=== PATIENT | female | born 1955 | race Caucasian/White ===

== ENCOUNTER 2021-02-02 11:12 | Emergency (ER) | payer OTHER ==
[~2021-02-02] VITALS: Ht 160 cm; Wt 65.8 kg
[2021-02-02] MEDS ORDERED: SODIUM CHLORIDE 0.9% 1,000 ML IV ONE ×2 (11:30→14:00)
[2021-02-02 12:09] LABS: INR 0.94 (0.9-1.15); Partial Thromboplastin Time 25.5 sec (23.0-31.2)
[2021-02-02 12:21] LABS: Lactic Acid w/Reflex 2.5 mmol/L (0.4-2.0)
[2021-02-02 12:30] LABS: Albumin 4.1 g/dL (3.4-5.0); Anion Gap 10 (5-15); Blood Urea Nitrogen 10 mg/dL (7-18); Calcium 9.4 mg/dL (8.5-10.1); Carbon Dioxide 24 mmol/L (21-32); Chloride 102 mmol/L (98-107); Glucose 160 mg/dL (74-106); Lipase 202 U/L (73-393); Sodium 136 mmol/L (136-145)
[2021-02-02 12:34] LABS: Basophils # (auto) 0.1 10 ^3/uL (0-0.2); Eosinophils # (auto) 0.1 10 ^3/uL (0-0.8); Hemoglobin 17.2 g/dL (12.2-16.2); Mean Corpuscular Hemoglobin 34.2 pg (28.0-32.0); Mean Corpuscular Hgb Conc. 34.1 g/dL (32.0-36.0); Monocytes # (auto) 0.9 10 ^3/uL (0-1.3); Neutrophils # (auto) 7.1 10 ^3/uL (1.6-8.6)
[2021-02-02 12:35] LABS: Basophils % (auto) 1.1 % (0.0-2.0); Eosinophils % (auto) 0.9 % (0.0-7.0); Hematocrit 50.3 % (36.0-46.0); Lymphocytes % (auto) 19.9 % (10.0-50.0); Mean Corpuscular Volume 100.3 fL (80.0-100.0); Monocytes % (auto) 8.6 % (0.0-12.0); Neutrophils % (auto) 69.5 % (37.0-80.0); Nucleated Red Blood Cells % 0.1 %; Platelet Count (auto) 403 10^3/uL (140-450); Red Blood Cells 5.01 10^6/uL (4.0-5.20); White Blood Cell 10.2 10^3/uL (4.4-10.8)
[2021-02-02 12:37] LABS: Alanine Aminotransferase 25 U/L (13-56); Alkaline Phosphatase 88 U/L (45-117); Aspartate Aminotransferase 22 U/L (15-37); BUN/Creatinine Ratio 9.3; Bilirubin, Total 0.5 mg/dL (0.2-1.0); GFR African American 66 mL/min; GFR Non-African American 55 mL/min; Total Protein 8.3 g/dL (6.4-8.2)
[2021-02-02 13:31] LABS: Urine WBC None Seen /hpf (0 - 5)
[2021-02-02 13:45] LABS: Urine Bacteria NONE SEEN /hpf (None Seen); Urine Blood Negative /uL (Negative); Urine Mucus FEW (None Seen); Urine Specific Gravity 1.008 (1.001-1.035)
[2021-02-02] MEDS ORDERED: POTASSIUM EFFERVESENT TAB 25 MEQ PO ONE (14:15)
[2021-02-02 14:35] VITALS: BP 133/77
== END 2021-02-02 15:24 | disposition home or self-care (01) ==
LOC: ER 11:12
DX: R10.32 Left lower quadrant pain (principal); E86.0 Dehydration; F17.210 Nicotine dependence, cigarettes, uncomplicated; I10 Essential (primary) hypertension
CPT/HCPCS: 36415; 71045; 74176; 80053; 81001; 83605; 83690; 84484; 85025; 85610; 85730; 87040; 93005; 96360; 96361; 99285; J7030

== ENCOUNTER → 2025-07-22 | Day surgery (SDC) | payer OTHER ==
[2025-07-22] VITALS (13 sets, daily range): BP systolic 115; BP diastolic 82; PULSE 83–108; RESP 12–18; TEMP 98.2; O2SAT 85–100
[~2025-07-22] VITALS: Ht 160 cm; Wt 72.6 kg
[~2025-07-22] MED LIST: ACETAMINOPHEN IV 100 ML IV ONE; ALBUAER3 IN; AML5T GT; ATOR10TA52 PO; DICY20TA PO; ETOMIDATE (2MG/ML) 20ML VIAL IV ONE; FLUT1AER5 IN; GABA-1308 PO; HYDR12.59 PO; HYDROmorphone HCL 2 MG/ML VL/or syr IV PRN; LIDOCAINE HCL 2% TOP JELLY 5ML TOP ONE; MEPERIDINE HCL (25 MG/ML) 1ML VIAL ONE; METO25TA93 PO; MIDAZOLAM HCL 2MG/2ML 2ml VIAL (1mg/ml) ONE; MORP10CA10 OR; ONDANSETRON HCL 4 MG/2 ML VIAL IV PRN; ONDANSETRON HCL 4 MG/2 ML VIAL ONE; ceFAZolin 2 GM/D5W50ml 50 ML IV ONE; fentaNYL CITRATE 100 MCG/2 ML VL ONE
--- NOTE | 2025-07-22 14:02 | DVH ---
NUCLEAR MEDICINE LYMPHOSCINTIGRAPHY HISTORY: BREAST CANCER TECHNIQUE/DOSE: 1 mCi Lymphoseek divided equally into 2 syringes. 2 intradermal injections around th e nipple of the left breast were performed at the 12:00 and 6:00 positions along the areola line. The left breast and axilla were immediately scanned for activity. FINDINGS: The 2 injection sites around the left nipple are visualized. IMPRESSION: Status post left breast lymphoscintigraphy.
--- NOTE | 2025-07-22 14:54 | DVH ---
MAMMOGRAPHIC GUIDED BREAST NEEDLE LOCALIZATION. INDICATION: LT BREAST MASS FINDINGS: Postop radiograph demonstrates the localization wire along with the specified target contai farhad within the specimen. IMPRESSION: Postop radiograph demonstrates the localization wire along with the specified target contained within the specimen.
[2025-07-22] MEDS: LIDOCAINE 1% HCL (LOCAL ANESTH.) INJ 20ML MDV ONE (15:02)
--- NOTE | 2025-07-22 15:30 | DVHOP2 ---
Operative Report [id number] LEFT BREAST MASS 4 O CLOCK EXCISION LEFT BREAST MASS LEFT AXILLARY LN DISSECTION WITH SENTINEL LN ONE DRAIN FOR BREAST AND AMANDEEP DRAIN FOR AXILLA EBL 25 CC NO COMPLICATIONS STABLE RETURN TO RECOVERY ROOM CARMELO WEBSTER MD Jul 22, 2025 15:30
[2025-07-22] MEDS: ACETAMINOPHEN IV 1000 MG/100ML (10MG/ML) IV ONE (15:39)
[2025-07-22] MEDS: IPRATROPIUM BROM 0.5 MG/2.5ML INH SOL NEB SCH (16:16)
[2025-07-22] MEDS: ALBUTEROL SULF 2.5 MG/0.5ML(0.5%) NEB SOLN NEB STA (16:16)
--- NOTE | 2025-07-22 16:30 | DVHOP ---
DATE OF SURGERY: 07/22/2025 PREOPERATIVE DIAGNOSIS: Left breast lesion. POSTOPERATIVE DIAGNOSIS: Left breast lesion. PROCEDURES: Left breast lesion excision and left axillary sentinel lymph node biopsy with lymph node dissection. SURGEON: Mason Rodriguez MD BICYCLE COURIER: None. ANESTHESIA: General. ESTIMATED BLOOD LOSS: Close to 25 mL. DRAINS: One drain was used for the breast site, [place] drain, and a Refugio drainage tube was placed for the left axillary side. DESCRIPTION OF PROCEDURE: The patient was prepped and draped in the usual sterile fashion in the supine position and before taking her to surgery, the mass was palpated. She initially was scheduled for wire localization that was not carried out, but I decided to proceed with the surgery as I was able to feel the mass and the patient was also confirming that and she agreed to proceed with the surgery. Based upon that, she also was informed that if the clip that was placed during a biopsy procedure time was not visible in the specimen that was submitted, she may have to come back and have the procedure repeated for the area of the clip to be removed and she agreed on that as well. So, the patient was prepped and draped in the usual sterile fashion in the supine position with the left breast area exposed and the left axilla exposed and a curved circumareolar incision was applied in a radial fashion in the lower outer quadrant close to the 4 o'clock location that is where the mass was located and was taken down to the deeper tissues and cautery and sharp dissection was used to remove the tissue all around this mass going superiorly, inferiorly, and laterally and then up to almost the pec major fascia. With this mass being removed, the sutures were placed. The anterior one was for the short suture, posterior was the opposite. The long suture was placed superiorly. The opposite was inferior and the lateral margin was marked with an Lore ink and the opposite was medial. Submitted for extra confirmation, the clip was noted to be in the specimen and presumably was close to the posterior inferior margin ____ extra margin was taken out and submitted for pathology. The outer surface was marked with ink and submitted for permanent pathology. The area was secured for hemostasis. Irrigation was performed and closure was done. A 1/4-inch Navin drain was placed to drain the surgical site and the wound was brought together using Vicryl suture for the subcutaneous tissues and 3-0 Monocryl suture for skin closure in subcuticular fashion. Surgical glue was applied and the drain also was secured with the Monocryl suture as well. The attention was then directed towards the left axilla site after glove changes were performed and the Neoprobe was applied to identify the location. It was in the medial side of the axilla and a curved incision was applied on the medial wall of the axilla was taken down to the deeper tissues. The axillary contents were exposed and the lymph node was identified with the Neoprobe, the read being above 2000, and it was taken out ____ lymph node as well using sharp and Bovie dissection. Once removed, the sentinel lymph node was marked and submitted for pathology, it was reported as negative. No further intervention was necessary. Thorough irrigation was carried out. Hemostasis was secured. No injuries occurred to the nerves or vessels in the vicinity at any time. Size 15 Refugio drainage was placed to drain the axillary subcutaneous tissues ____ from the inferior portion of the incision site as a separate incision and securing it with a silk suture. The wound itself was then brought together using Vicryl suture for the subcutaneous tissues and 3-0 Monocryl suture for skin closure in a subcuticular fashion. Surgical glue was applied. Steri-Strips were applied for both the wound sites and dressing was applied. The patient tolerated the procedure well, was taken back to the recovery room in stable condition and the findings were discussed with the family after that. MD HOMER Chew/DELROY/MICKY TID: [id number] RECEIPT: [id number]
--- NOTE | 2025-07-23 07:27 | ECG ---
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
== END | disposition home or self-care (01) ==
LOC: SUR 09:31
PROVIDERS: ATTEND Surgery
DX: N63.23 Unspecified lump in the left breast, lower outer quadrant (principal); C50.912 Malignant neoplasm of unspecified site of left female breast; I10 Essential (primary) hypertension; I25.10 Atherosclerotic heart disease of native coronary artery without angina pectoris; J43.9 Emphysema, unspecified; Z98.890 Other specified postprocedural states
CPT/HCPCS: 19120; 38525; 76098; 78195; 88307; 88331; 88341; 88342; 93005; 94640; A4649; A9541; J0690; J1100; J2003; J2175; J2250; J2405; J3010; J0131